=== PATIENT | female | born 1995 | race Caucasian/White ===

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

== ENCOUNTER 2017-02-13 14:50 | Emergency (ER) | payer OTHER ==
[~2017-02-13] VITALS: Ht 149.9 cm; Wt 53.5 kg
[2017-02-13 14:51] VITALS: Ht 149.9 cm; Wt 53.5 kg
[2017-02-13] MEDS ORDERED: ACETAMINOPHEN 500 MG TAB PO STA (15:01)
[2017-02-13] MEDS ORDERED: ONDANSETRON (ODT) 4 MG TAB ODT STA (15:01)
--- NOTE | 2017-02-13 15:09 | ERD ---
ER Documentation Chief Complaint Date/Time DATE: 02/13/17 TIME: 15:08 Chief Complaint left lower quadrant pain nad nausea x 2 days HPI Patient is a 21-year-old female who presents to the ED with left pelvic pain 2 days. She states that she has had a few episodes of nonbloody nonbilious emesis. Denies diarrhea. Denies fever or chills. States that the pain comes and goes. Has a decrease in appetite. She is tolerating fluids. Her last bowel movement was yesterday. Denies headache or dizziness. Denies chest pain or cough or shortness of breath. Denies radiation of pain. States that she does have dysuria and urgency. Denies back pain. ROS All systems reviewed and are negative except as per history of present illness. Medications Home Meds Active Scripts Acetaminophen* (Tylophen*) 500 Mg Capsule, 1 CAP PO Q6H Y for PAIN AND OR ELEVATED TEMP, #20 CAP Prov:PETE SANDERSON PA-C 02/13/17 Nitrofurantoin Monohyd Macrocr* (Macrobid*) 100 Mg Capsr, 100 MG PO BID for 7 Days, CAP Prov:PETE SANDERSON PA-C 02/13/17 Reported Medications Cetirizine Hcl (All Day Allergy) 10 Mg Tablet 04/23/10 Amphet Xxh-Zmqykz-V-Amphet (Adderall) 5 Mg Tablet 12/23/09 Allergies Allergies: Coded Allergies: No Known Drug Allergies (Verified Allergy, Mild, 12/23/09) PMhx/Soc History of Surgery: No Anesthesia Reaction: No Hx Neurological Disorder: No Hx Respiratory Disorders: No Hx Cardiac Disorders: No Hx Psychiatric Problems: No Hx Miscellaneous Medical Probl: No Hx Alcohol Use: Yes (Has used in past week) Hx Substance Use: No Hx Tobacco Use: No FmHx Family History: No coronary disease, No diabetes, No other Physical Exam Vitals Vital Signs Date Time Temp Pulse Resp B/P Pulse Ox O2 Delivery O2 Flow Rate FiO2 02/13/17 14:51 98.3 71 18 117/65 97 Physical Exam GENERAL: Well-developed, well-nourished female. Appears in no acute distress. HEAD: Normocephalic, atraumatic. EYES: Pupils are equally reactive bilaterally. EOMs grossly intact. No conjunctival erythema. ENT: Moist mucous membranes. No uvula deviation. No kissing tonsils. No exudates. NECK: Supple. No lymphadenopathy or thyromegaly. No meningismus. negative kernig. negative brudinski. LUNG: Clear to auscultation bilaterally. No rhonchi, wheezing, rales or coarse breath sounds. HEART: Regular rate and rhythm. No murmurs, rubs or gallops. ABDOMEN: No scars, ecchymosis or rashes noted. Soft, nontender, and nondistended. Positive bowel sounds in all four quadrants. No rebound tenderness , no guarding. (-) McBurneys point tenderness. No CVA tenderness. Slight tenderness in the left pelvic region BACK: No midline tenderness. Extremities: Equal pulses bilaterally. No peripheral clubbing, cyanosis or edema. No unilateral leg swelling. NEUROLOGIC: Alert and oriented. Moving all four extremities. 5/5 strength in all extremities. Normal speech. Steady gait. SKIN: Normal color. Warm and dry. No rashes or lesions. Capillary refill < 2 seconds Result Diagram: 02/13/17 1604 Results 24 hrs Laboratory Tests Test 02/13/17 15:37 02/13/17 16:04 Bedside Urine pH (LAB) 6.0 Bedside Urine Protein (LAB) 2+ Bedside Urine Glucose (UA) 0.1% Bedside Urine Ketones (LAB) 2+ Bedside Urine Blood 2+ Bedside Urine Nitrite (LAB) Positive Bedside Urine Leukocyte Esterase (L 3+ White Blood Count 16.310^3/ul Red Blood Count 4.3010^6/ul Hemoglobin 13.7g/dl Hematocrit 39.5% Mean Corpuscular Volume 91.9fl Mean Corpuscular Hemoglobin 31.9pg Mean Corpuscular Hemoglobin Concent 34.7g/dl Red Cell Distribution Width 12.4% Platelet Count 05715^3/UL Mean Platelet Volume 10.4fl Neutrophils % 83.9% Lymphocytes % 10.4% Monocytes % 5.0% Eosinophils % 0.1% Basophils % 0.3% Nucleated Red Blood Cells % 0.0/100WBC Neutrophils # 13.710^3/ul Lymphocytes # 1.710^3/ul Monocytes # 0.810^3/ul Eosinophils # 0.010^3/ul Basophils # 0.110^3/ul Nucleated Red Blood Cells # 0.010^3/ul Current Medications Medications (Trade) Dose Ordered Sig/Jeevan Route PRN Reason Start Time Stop Time Status Last Admin Dose Admin Ondansetron HCl (Zofran Odt) 4 mg ONCE STAT ODT 02/13/17 15:01 02/13/17 15:04 DC 02/13/17 15:30 Acetaminophen (Tylenol Tab) 500 mg ONCE STAT PO 02/13/17 15:01 02/13/17 15:04 DC 02/13/17 15:29 Procedures/MDM ER COURSE: I kept the patient and/or family informed of laboratory and diagnostic imaging results throughout the emergency room course. EKG, MONITORS, & DIAGNOSTIC IMAGING: [place] [id number] Radiology Main Line: [phone] DIAGNOSTIC IMAGING REPORT Patient: NICCI FRITZ : 1995 Age: 21 Sex: F MR #: [id number] DOS: 02/13/17 1501 Ordering MD: PETE SANDERSON PA-C Location: [facility] Room/Bed: PROCEDURE: US OB. CLINICAL INDICATION: Pelvic pain TECHNIQUE: Transabdominal and transvaginal views of the pelvis are available for review. COMPARISON: No prior studies are available for comparison. FINDINGS: There is a single intrauterine gestation with the crown-rump length measuring 0.4 cm and gestational sac measuring 1.7 cm, corresponding to a gestational age of 6 weeks and 2 days. The heart rate is noted at 90 bpm. Normal Doppler flow is identified in both ovaries. The right ovary measures 2.3 x 1.0 x 1.5 cm. The left ovary measures 3.8 x 2.6 x 2.3 cm. There is a hemorrhagic corpus luteum cyst in the left ovary. There is a 2.3 cm left paraovarian simple cyst. There is no free fluid. RPTAT: AA IMPRESSION: Single live intrauterine with an estimated gestational age of 6 weeks and 2 days, based on ultrasound measurements. JARED based on ultrasound measurements is 10/07/2017. Marked bradycardia. Close follow-up is needed. .Zhen Estrada MD, Date Time Electronically viewed and signed by .Zhen Estrada MD, MD on 02/13/2017 16: 26 .S/ CC: PETE SANDERSON PA-C LAB INTERPRETATION: CBC showed no evidence of systemic infection or severe anemia UA shows 3+ leukocytes with positive nitrites and positive hematuria urine test was POSITIVE MEDICAL DECISION MAKING: This is a 21-year-old female who is who presents with pelvic pain 2 days. Vital signs were reviewed. Patient is afebrile. Patient is not hypoxic. Patient is nontoxic or ill-appearing. Patient's test was positive here in the ED. Therefore further imaging report and blood work was ordered. Patient does have a slightly elevated white count which is likely due to . Patient's urine shows UTI. I have low suspicion for pyelonephritis at this time as patient is afebrile and does not have CVA tenderness. Patient is not ill-appearing. Patient BHCG pending and patient will be handed to next provider, Lorrie Rizzo. If BHCG within normal limits, patient sent home with macrobid, tylenol and to follow up with OB doctor. All labs and imaging studies were discussed with patient. Copy of all reports were given to patient. Patient to follow-up with OB doctor in 1-2 days. At this time, patient is stable for discharge and outpatient management with no new complaints during the ER course.. Patient will be discharged home with instructions to recheck for new or worsening symptoms such as fever, nausea, weakness, LOC and to follow up with primary care in the next 1-2 days. Patient was advised to return to the ER for any new or worsening symptoms. Plan was discussed and patient and/or family understands and agrees. Home instructions were given. Departure Diagnosis: Primary Impression: Pelvic pain affecting Additional Impression: Cystitis Condition: Stable PETE SANDERSON PA-C Feb 13, 2017 15:09
[2017-02-13 15:33] LABS: URINE BLOOD (Dip) POC 2+ (NEGATIVE)
[2017-02-13 16:14] LABS: BASOPHIL # 0.1 10^3/ul (0.0-0.1); BASOPHILS % 0.3 % (0.0-2.0); EOSINOPHILS % 0.1 % (0.0-7.0); HEMATOCRIT 39.5 % (37.0-47.0); HEMOGLOBIN 13.7 g/dl (12.0-16.0); LYMPHOCYTES # 1.7 10^3/ul (0.8-2.9); LYMPHOCYTES % 10.4 % (18.0-55.0); MEAN CORPUSCULAR HEMOGLOBIN 31.9 pg (29.0-33.0); MEAN CORPUSCULAR HGB CONC 34.7 g/dl (32.0-37.0); MEAN CORPUSCULAR VOLUME 91.9 fl (72.0-104.0); MEAN PLATELET VOLUME 10.4 fl (7.4-10.4); MONOCYTE # 0.8 10^3/ul (0.3-0.9); NEUTROPHIL # 13.7 10^3/ul (1.6-7.5); NEUTROPHILS % 83.9 % (30.0-74.0); PLATELET COUNT 245 10^3/UL (140-415); RED CELL DISTRIBUTION WIDTH 12.4 % (11.5-14.5); WHITE BLOOD COUNT 16.3 10^3/ul (4.8-10.8)
--- NOTE | 2017-02-13 16:27 | RADRPT ---
PROCEDURE: US OB. CLINICAL INDICATION: Pelvic pain TECHNIQUE: Transabdominal and transvaginal views of the pelvis are available for review. COMPARISON: No prior studies are available for comparison. FINDINGS: There is a single intrauterine gestation with the crown-rump length measuring 0.4 cm and gestational sac measuring 1.7 cm, corresponding to a gestational age of 6 weeks and 2 days. The heart rate is noted at 90 bpm. Normal Doppler flow is identified in both ovaries. The right ovary measures 2.3 x 1.0 x 1.5 cm. The left ovary measures 3.8 x 2.6 x 2.3 cm. There is a hemorrhagic corpus luteum cyst in the left ov faby. There is a 2.3 cm left paraovarian simple cyst. There is no free fluid. RPTAT: AA IMPRESSION: Single live intrauterine with an estimated gestational age of 6 weeks and 2 days, based on ultrasound measurements. JARED based on ultrasound measurements is 10/07/2017. Marked bradycardia. Close follow-up is needed. .Zhen Estrada MD, MD Date Time Electronically viewed and signed by .Zhen Estrada MD, on 02/13/2017 16:26 .S/
[2017-02-13] MEDS ORDERED: ACET500C5 PO (17:38)
[2017-02-13] MEDS ORDERED: NITR-58 PO (17:38)
[2017-02-13 19:25] VITALS: BP 117/61; PULSE 64; RESP 16; TEMP 98.5
== END 2017-02-13 19:27 | disposition home or self-care (01) ==
LOC: FTE 14:50
DX: O26.891 Other specified pregnancy related conditions, first trimester (principal); R10.2 Pelvic and perineal pain; O23.11 Infections of bladder in pregnancy, first trimester; O21.9 Vomiting of pregnancy, unspecified; Z3A.01 Less than 8 weeks gestation of pregnancy
CPT/HCPCS: 76801; 76817; 81003; 84702; 85025; 86900; 86901; Z7610; 36415

== ENCOUNTER 2017-07-02 15:12 | Inpatient (IN) | payer OTHER ==
[~2017-07-02] VITALS: Ht 149.9 cm; Wt 64.7 kg
[~2017-07-02 15:12] MED LIST changes: +ACET500C5 PO; +NITR-58 PO
[2017-07-02 15:26] VITALS: BP 110/59; PULSE 93; RESP 20; Ht 149.9 cm; Wt 64.7 kg
[2017-07-02 16:24] LABS: BASOPHILS % 0.3 % (0.0-2.0); EOSINOPHILS # 0.1 10^3/ul (0.0-0.5); EOSINOPHILS % 0.6 % (0.0-7.0); HEMATOCRIT 30.6 % (37.0-47.0); HEMOGLOBIN 10.6 g/dl (12.0-16.0); LYMPHOCYTES # 1.8 10^3/ul (0.8-2.9); LYMPHOCYTES % 12.7 % (18.0-55.0); MEAN CORPUSCULAR HEMOGLOBIN 32.2 pg (29.0-33.0); MEAN CORPUSCULAR HGB CONC 34.6 g/dl (32.0-37.0); MONOCYTE # 0.7 10^3/ul (0.3-0.9); MONOCYTES % 5.2 % (0.0-13.0); NEUTROPHIL # 11.5 10^3/ul (1.6-7.5); NEUTROPHILS % 80.4 % (30.0-74.0); PLATELET COUNT 286 10^3/UL (140-415); RED BLOOD COUNT 3.29 10^6/ul (4.20-5.40); WHITE BLOOD COUNT 14.3 10^3/ul (4.8-10.8)
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
[2017-07-03] MEDS ORDERED: PRENATAL VITAMIN PO SCH (09:00)
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
[2017-07-04] MEDS ORDERED: INFLUENZA VIRUS VACCINE 0.5 ML (DISPENSING) IM* ONE (09:00)
== END 2017-07-03 16:00 | disposition home or self-care (01) | DRG 923 ==
LOC: OBT 15:12 → L-D 15:14 → OBT 18:30 → PP1 19:05
PROVIDERS: ADMIT Specialist; ATTEND Specialist
DX: Z04.1 Encounter for examination and observation following transport accident (principal); O26.892 Other specified pregnancy related conditions, second trimester; Z3A.26 26 weeks gestation of pregnancy; V49.9XXA Car occupant (driver) (passenger) injured in unspecified traffic accident, initial encounter; Y92.410 Unspecified street and highway as the place of occurrence of the external cause
CPT/HCPCS: 36415; 76815; 76818; 85025; 85460; 86850; 86900; 86901; G0463

== ENCOUNTER 2017-12-06 13:48 | Emergency (ER) | END 2017-12-06 14:09 | disposition home or self-care (01) ==

== ENCOUNTER 2019-01-18 11:11 | Outpatient (CLI) | payer OTHER ==
[~2019-01-18] VITALS: Ht 149.9 cm; Wt 72.9 kg
[~2019-01-18 11:11] MED LIST changes: -ACET500C5 PO; +AMOX1TAB10 PO; +CETI10TA3; -CETI10TA4; -DEXT5TAB17; +GUAI5SYR2 PO; -NITR-58 PO; +PSEU30TA38 PO
[2019-01-18 11:29] VITALS: Ht 149.9 cm; Wt 72.9 kg
[2019-01-18 11:30] VITALS: BP 100/51; PULSE 90; RESP 18
[2019-01-18] MEDS ORDERED: LACTATED RINGER'S 1,000 ML IV SCH (12:00)
[2019-01-18] MEDS ORDERED: TERBUTALINE 1 ML ONE (13:57)
[2019-01-18] MEDS ORDERED: TERBUTALINE 1 MG/ML INJ SC ONE (14:00)
--- NOTE | 2019-01-18 15:18 | TRIAGE ---
OB Triage Datetime Report Generated by CPN: 01/18/2019 15:18 Datetime: 01/18/2019 15:03 Labor Evaluation Frequency: X1 Monitor Mode: External Duration (sec)2399: 50 Quality: Mild Pattern: Normal: <= 5 Contractions in 10 Minutes Resting Tone [place]: Relaxed Heart Rate FHR Baseline Rate: 135 Monitor Mode: External US Variability: Moderate 6-25 bpm Accelerations: 15X15 Decelerations: None Category: Category I Pain Presence: None/Denies Pain Type: N/A Datetime: 01/18/2019 14:01 Labor Evaluation Frequency: 2-8 Monitor Mode: External Duration (sec)2399: 60-100 Quality: Mild Pattern: Normal: <= 5 Contractions in 10 Minutes Resting Tone [place]: Relaxed Heart Rate FHR Baseline Rate: 125 Monitor Mode: External US Variability: Moderate 6-25 bpm Accelerations: 15X15 Decelerations: None Category: Category I Pain Presence: None/Denies Pain Type: N/A Datetime: 01/18/2019 13:28 Labor Evaluation Frequency: x3 Monitor Mode: External Duration (sec)2399: 60-100 Quality: Mild Pattern: Normal: <= 5 Contractions in 10 Minutes Resting Tone [place]ker: Relaxed Heart Rate FHR Baseline Rate: 125 Monitor Mode: External US Variability: Moderate 6-25 bpm Accelerations: 15X15 Decelerations: None Category: Category I Pain Presence: None/Denies Pain Type: N/A Datetime: 01/18/2019 12:29 Labor Evaluation Frequency: x4 Monitor Mode: Palpation Duration (sec)2399: 50-80 Quality: Mild Pattern: Normal: <= 5 Contractions in 10 Minutes Resting Tone D[place]ker: Relaxed Heart Rate FHR Baseline Rate: 135 Monitor Mode: External US Variability: Moderate 6-25 bpm Accelerations: 15X15 Decelerations: None Category: Category I Pain Assessment Pain Scale: 10 Pain Presence: Intermittent Pain Type: Contraction Pain Location: Abdomen Pain Goal: 3 Datetime: 01/18/2019 11:51 Vaginal Exam Dilatation (cms): 0.0 Exam By: wliu Datetime: 01/18/2019 11:28 Assessment Type: Triage Time of Arrival: 01/18/2019 11:02 EGA: 35.4 Arrived By: Ambulatory Arrived From: Home Chief Complaint: c/o uc @0800 Movement: Present Contractions: Irregular Rupture of Membranes: Denies Vaginal Bleeding: None Vaginal Discharge: Denies Recent Sexual Intercouse: Denies Abdominal Trauma: Not Applicable Patient Complaints: Contractions Time Provider Notified: 01/18/2019 11:54 Provider Notified: Initial Plan: r/o ptl Maternal Assessment Level of Consciousness: Keenly Alert, Responsive DTR's/Clonus: DTRs 2+; No Clonus Headache: Denies Blurred Vision: No Respiratory Effort: Unlabored; Regular Rhythm; Equal Expansion Breath Sounds, Left: Clear and Equal Breath Sounds, Right: Clear and Equal Nausea/Vomiting: Denies RUQ Epigastric Pain: Denies Lower Extremities Edema: None Degree: None Upper Extremities Edema: None Degree: None Facial Edema: None Fall Risk Assessment History of Falling: (0) No Secondary Diagnosis: (0) No Ambulatory Aid: (0) Bedrest/Nurse Assist IV Therapy: (0) No Gait: (0) Normal/Bedrest/Immobile Mental Status: (0) Oriented to Own Ability Fall Score: 0 Fall Risk Score Definition: No Risk: No action required
--- NOTE | 2019-02-28 19:57 | PN ---
Triage Information Date/Time Reason for visit: Uterine contractions Weeks of Gestation 35 weeks and 4 days /Para -0-0-1 Diabetes: none Hypertention: none Objective Heart Rate: 140's Contractions: 6-10 Minutes Apart Disposition: Discharge Assessment/Plan 23 years old 2 para 1-0-0-1 with single intrauterine at 35 weeks and 4 days complaining of uterine contractions. She states good movement. She denies nausea, vomiting, shortness of breath, chest pain, headache, visual changes, vaginal bleeding or LOF. -FHR: No sign of metabolic acidosis- Category I -Contractions: Irregular -Urinalysis was positive for leukocyte Estrace and nitrate. Urine culture with sensitivity ordered -SVE: Closed/thick/high/ceph/intact -IV fluid and terbutaline subcut 1 dose given. No further uterine contraction was noted -Ultrasound performed: Normal RICARDO -Symptoms and sign of labor, preeclampsia, kick count discussed with patient, she voiced understanding. All of her questions answered. -Patient was discharged home in stable condition with the appropriate discharge instructions provided. I would like patient to have close follow-up with her primary physician or outpatient clinic in 1-2 days or return to triage for worsening symptoms or any other urgent concerns. Late entry note. Patient seen on 01/18/2019 JONATHAN KUHN Feb 28, 2019 19:57
== END 2019-01-18 15:10 | disposition home or self-care (01) ==
LOC: OBT 11:11 → L-D 11:14 → OBT 15:10
PROVIDERS: ATTEND Obstetrics & Gynecology
DX: O62.9 Abnormality of forces of labor, unspecified (principal); Z3A.35 35 weeks gestation of pregnancy
CPT/HCPCS: 76815; 96360; 96361; 96372; J3105; J7120; Z7500; G0463